=== PATIENT | female | born 1950 | race Caucasian/White ===

== ENCOUNTER → 2019-06-07 10:53 | Outpatient (CLI) | payer MEDICARE, OTHER, SELFPAY ==
[2019-06-07 11:33] LABS: BUN Creatinine Ratio 21.3 (6-22); Blood Urea Nitrogen 17 mg/dL (7-17); Estimated Glomerular Filt Rate > 60.0 mL/min (>60)
--- NOTE | 2019-06-07 11:59 | DI.CT.S_ITS ---
PROCEDURE: CT ABDOMEN PELVIS W CON INDICATIONS: Periumbilical pain/stat labs TECHNIQUE: After the administration of oral and intravenous contrast, 5 mm thick sections acquired from the diaphragms to the symphysis. 5 mm thick coronal and sagittal reformats were performed. For radiation dose reduction, the following was used: automated exposure control, adjustment of mA and/or kV according to patient size. COMPARISON: [facility], CT, CT ABDOMEN PELVIS WITH CONTRAST, 01/18/2019, 13:52. Outside Film, CT, CT ABDOMEN PELVIS WITH CONTRAST, 03/06/2019, 13:12. Outside Film, CT, CT CHEST WITH CONTRAST, 03/06/2019, 13:12. FINDINGS: Image quality: Excellent. ABDOMEN: Lung bases: Right middle lobe and lingular atelectasis. Lung bases are otherwise clear. Heart size is normal. Solid organs: Liver is normal in size and enhancement. Gallbladder is surgically absent. Biliary system is non-dilated. Pancreas enhances normally. Spleen is normal in size and enhancement. There is a 1 cm splenule near the splenic hilum. No adrenal nodules. Kidneys are normal in size and enhancement, without hydronephrosis. Peritoneum and bowel: Stomach, small bowel, and colon loops are normal in caliber and wall thickness. There are multiple colonic diverticula. Surgical clips are noted in the right lower quadrant. No free fluid or air. Nodes and vessels: No retroperitoneal or mesenteric adenopathy. Aorta and inferior vena cava are normal in caliber. Miscellaneous: There is a tiny fat-containing umbilical hernia. Mild stranding in the left anterior abdominal wall, unchanged. PELVIS: Genitourinary: Bladder wall thickness is normal. Uterus is absent. Ovaries are not identified. No free fluid in pelvis. Miscellaneous: No inguinal hernias or adenopathy. Bones: No suspicious bony lesions. No vertebral body compression fractures. IMPRESSION: 1. Diverticulosis without acute diverticulitis. 2. Tiny fat containing umbilical hernia. 3. No recurrent ventral hernia. Dictated by: Gemma Rucker M.D. on 06/07/2019 at 16:24 Approved by: Gemma Rucker M.D. on 06/07/2019 at 17:47
== END ==
PROVIDERS: Family Provider General Practice; PCP General Practice; Visit Provider General Practice
DX: R10.33 Periumbilical pain (principal); R10.13 Epigastric pain
CPT/HCPCS: 36415; 74177; 82565; 84520; Q9967

== ENCOUNTER → 2020-01-11 12:20 | Outpatient (CLI) | payer OTHER, SELFPAY ==
--- NOTE | 2020-01-11 | DI.MRI.S_ITS ---
PROCEDURE: MR CERVICAL SPINE WO CON INDICATIONS: THORACIC OUTLET SYNDROME TECHNIQUE: Noncontrast sagittal T1 spin echo and T2 fast spin echo, sagittal STIR, foraminal oblique sagittal T2 fast spin echo, and axial gradient echo or T2 fast spin echo through the cervical spine. COMPARISON: None. FINDINGS: Image quality: Excellent. Alignment and Curvature: Grade 1 anterolisthesis of C4 on C5 grade 1 retrolisthesis C5 on C6. Trace anterolisthesis of C7 on T1. Straightening of the normal lordotic curvature. Bone Marrow: Multilevel degenerative endplate sclerosis and spurring. Diffuse facet arthropathy. Spinal Cord: Visualized spinal cord has normal size and signal. No cerebellar tonsillar herniation. Paraspinous Soft Tissues: No paravertebral masses. Prevertebral soft tissues are normal in thickness. C2-C3: No canal stenosis. Moderate narrowing of the right neural foramen with nerve root compression. No left foraminal stenosis C3-C4: No definite canal stenosis. Severe right foraminal stenosis with nerve root compression. Mild to moderate left foraminal narrowing C4-C5: Mild canal narrowing. Moderate right foraminal stenosis with slight nerve root compression. Severe left foraminal stenosis with nerve root compression C5-C6: Moderate canal stenosis, which is predominantly left-sided. Moderate bilateral foraminal narrowing with nerve root compression. C6-C7: Moderate canal narrowing. Severe right foraminal stenosis with nerve root compression. Moderate left foraminal stenosis with nerve root compression C7-T1: No canal stenosis. Moderate bilateral foraminal narrowing with nerve root compression. IMPRESSION: Multilevel cervical spondylosis and facet arthropathy with moderate canal narrowing at C5-C6 C6-C7 Numerous bilateral foraminal stenoses as outlined above Multilevel spondylolisthesis as above. Dictated by: Desmond Kimble M.D. on 01/11/2020 at 14:39 Approved by: Desmond Kimble M.D. on 01/11/2020 at 14:47
--- NOTE | 2020-01-11 | DI.MRI.S_ITS ---
PROCEDURE: MR THORACIC SPINE WO CON INDICATIONS: THORACIC OUTLET SYNDROME TECHNIQUE: Noncontrast sagittal T1 spine echo and T2 fast spin echo, sagittal STIR, axial T1 and T2 fast spin echo through the thoracic spine. COMPARISON: [facility], , MR CERVICAL SPINE WO CON, 01/11/2020, 12:43. FINDINGS: Image quality: Excellent. Alignment and Curvature: There is normal bony alignment. Bone Marrow: Multilevel degenerative endplate sclerosis and spurring. Diffuse facet arthropathy. No fracture identified. Cervical spondylosis better detailed on the comparison C-spine MRI. Spinal Cord: Visualized spinal cord is normal in size and signal. Paraspinous Soft Tissues: No paravertebral masses. Miscellaneous: Multiple posterior disc bulges, most notably at T11-T12 there is mild canal narrowing. No thoracic spine foraminal stenosis IMPRESSION: No fracture Diffuse discogenic changes as above Partially visualized cervical spondylosis and facet arthropathy Dictated by: Desmond Kimble M.D. on 01/11/2020 at 14:51 Approved by: Desmond Kimble M.D. on 01/11/2020 at 14:55
== END ==
PROVIDERS: Family Provider General Practice; PCP General Practice
DX: M47.812 Spondylosis without myelopathy or radiculopathy, cervical region (principal); M48.02 Spinal stenosis, cervical region; M51.24 Other intervertebral disc displacement, thoracic region; M48.04 Spinal stenosis, thoracic region
CPT/HCPCS: 72141; 72146

== ENCOUNTER → 2020-01-14 12:16 | Outpatient (CLI) | payer OTHER, MEDICARE, SELFPAY ==
--- NOTE | 2020-01-14 | DI.MRI.S_ITS ---
PROCEDURE: MR CHEST WO CON INDICATIONS: ON GOING PAIN AFTER ACCIDENT TECHNIQUE: Axial and oblique coronal T1 spin echo and T2 spin echo with fat saturation, sagittal T1 spin echo and STIR acquired through the affected chest wall. COMPARISON: None. FINDINGS: Image quality: Excellent. Soft tissues: The sternal and clavicular heads of the pectoralis major muscle demonstrate normal bulk and internal signal. The pectoralis major tendon appears intact as it inserts onto the humeral shaft along the lateral lip of the intertubercular groove. The nearby quadrilateral space appears normal on axial images. No soft tissue fluid collections. Other visualized muscles appear intact, including the pectoralis minor and coracobrachialis. Bones: Visualized bony structures of the chest wall and upper arm appear intact, without focal marrow edema. IMPRESSION: Left chest wall muscles are grossly intact. No gross marrow signal abnormality is seen in the visualized left ribs and left clavicle. Please correlate with MRI of shoulder findings. Dictated by: Martín Sharma M.D. on 01/14/2020 at 14:42 Approved by: Martín Sharma M.D. on 01/14/2020 at 14:44
--- NOTE | 2020-01-14 | DI.MRI.S_ITS ---
PROCEDURE: MR SHOULDER LT WO CON INDICATIONS: THORACIC OUTLET SYNDROME TECHNIQUE: Noncontrast oblique coronal T2 fast spin echo with fat saturation, oblique sagittal T1 spin echo and T2 fast spin echo with fat saturation, axial T1 spin echo and T2 fast spin echo with fat saturation through the shoulder. COMPARISON: None. FINDINGS: Image quality: Excellent. Rotator cuff: Tendinosis and low to moderate grade articular and bursal surface partial-thickness tear involving distal supraspinatus at its insertion on the humeral head is seen extending to musculotendinous junction. Distal infraspinatus tendinosis is also seen. Distal subscapularis tendon is intact. Sagittal images demonstrate mild supraspinatus muscle atrophy. Bones and bursae: No bone marrow contusions or fractures. Moderate acromioclavicular joint osteoarthritic changes are seen with prominent downward osteophyte formation compressing on musculotendinous junction of supraspinatus. No pathologic subacromial-subdeltoid or subcoracoid bursal fluid is present. Capsule and soft tissues: In the absence of intra-articular contrast, the labrum and glenohumeral ligaments appear intact. The long head of the biceps tendinosis is seen. The rotator interval appears normal, without fibrosis. The coracohumeral ligament is normal in thickness. IMPRESSION: 1. Tendinosis and low to moderate grade articular and bursal surface partial-thickness tear involving distal supraspinatus extending to musculotendinous junction. Mild supraspinatus muscle atrophy. 2. Distal infraspinatus tendinosis. 3. Proximal intra-articular portion of long head biceps tendinosis. 4. Moderate acromioclavicular joint osteoarthritis. 5. No evidence of gross focal labral tear. Dictated by: Martín Sharma M.D. on 01/14/2020 at 13:51 Approved by: Martín Sharma M.D. on 01/14/2020 at 13:53
== END ==
PROVIDERS: Family Provider General Practice; PCP General Practice
DX: S46.012A Strain of muscle(s) and tendon(s) of the rotator cuff of left shoulder, initial encounter (principal); G54.0 Brachial plexus disorders; M19.012 Primary osteoarthritis, left shoulder; X58.XXXA Exposure to other specified factors, initial encounter
CPT/HCPCS: 71550; 73221

== ENCOUNTER 2021-04-17 10:14 | Emergency (ER) | payer MEDICARE, OTHER, SELFPAY ==
[2021-04-17 10:25] VITALS: BP 184/91; PULSE 71; O2SAT 99
--- NOTE | 2021-04-17 11:01 | ED.SKABFB ---
HPI - Skin/Abscess/Foreign Bdy General Chief complaint: Skin/Abscess/Foreign Body Stated complaint: had adm surgey yesterday and doesnt look good Time Seen by Provider: 04/17/21 10:37 Source: patient Mode of arrival: Ambulatory Limitations: no limitations History of Present Illness HPI narrative: Patient is a 70-year-old female who yesterday underwent an outpatient surgery where she had which she describes as a cyst removed from her abdominal wall just left to the umbilicus. This was done at an outside facility. She states that the surgery went well. She was discharged home. She has been following all of the postoperative instructions. She states that overnight she did develop redness around the area and warmth. No drainage from the wound. No fevers. Is having some discomfort but is not taking her pain medication that she states she does not want to take narcotics. Related Data Home Medications Medication Instructions Recorded Confirmed conjugated estrogens 0.625 mg 0.625 mg PO QDAY #0 12/30/16 tablet (Premarin) levothyroxine 75 mcg tablet 75 mcg PO Q DAY #0 12/30/16 (Synthroid) lisinopril 40 mg tablet 40 mg PO QDAY #0 12/30/16 omeprazole 20 mg capsule,delayed 20 mg PO QDAY@0600 #0 12/30/16 release oregano oil 1,500 mg capsule 1,500 mg PO QDAY #0 12/30/16 tolterodine 4 mg capsule,extended 4 mg PO QDAY #0 12/30/16 release 24 hr (Detrol LA) montelukast 10 mg tablet QDAY #0 04/14/17 (Singulair) Allergies Allergy/AdvReac Type Severity Reaction Status Date / Time codeine [CODEINE] Allergy Mild sedation Verified 04/17/21 11:16 meperidine [From DEMEROL] Allergy Mild N/V Verified 04/17/21 11:16 Review of Systems Constitutional Comments: No fevers Gastrointestinal Comments: Some pain around the surgical site Genitourinary Comments: No urinary symptoms Integumentary/Breasts Comments: Redness around surgical site Patient History Surgical History History of oral surgery (12/10/16) History of tonsillectomy Status post appendectomy Status post cholecystectomy Status post hernia repair Status post hysterectomy Status post rotator cuff repair Status post rotator cuff repair Family History (Updated 12/29/16 @ 00:00 by Conversion Provider) Father Alcoholic Mother Age: 100 COPD (chronic obstructive pulmonary disease) Blind Deaf Hypertension Social History Smoking Status: Never smoker Smoking Status: Never smoker alcohol intake frequency: 0-2 drinks per day Substance Use Type: does not use Exam Initial Vital Signs Initial Vital Signs: Vital Signs Pulse Rate 71 04/17/21 10:25 Blood Pressure 184/91 H 04/17/21 10:25 Pulse Oximetry 99 04/17/21 10:25 Const General: cooperative and comfortable HENMT Head: normal to inspection and normocephalic Resp Effort & Inspection: normal respiratory effort Cardio Rate: regular rate Skin Other: Patient does have a surgical wound on her anterior abdomen just left of the umbilicus consistent with her stated history. The wound looks well. No drainage. There is a 3 cm area of redness surrounding this area. Neuro General: patient alert, patient awake, patient oriented x3 and moves all extremities Extrem General: normal to inspection and capillary refill normal Course Orders Ordered: Discontinued Medications Acetaminophen (Acetaminophen 325 Mg Tablet) 650 mg PO NOW ONE Stop: 04/17/21 11:13 Last Admin: 04/17/21 11:16 Dose: 650 mg Documented by: JAGJIT Vital Signs Vital signs: Vital Signs - 8 hr 04/17/21 10:25 Pulse Rate 71 Blood Pressure 184/91 H Pulse Oximetry 99 MDM - Skin/Abscess/Foreign Bdy MDM Narrative Medical decision making narrative: I feel that given the fact that she just had surgery less than 24 hours ago that the redness surrounding the wound today is most likely a reactionary issue not an infectious issue. She is afebrile. Nontoxic appearing. Is only mildly tender to the touch. I did surround the area with a marking pen. We will hold on any antibiotics for now. She was informed that if the redness continues to extend from the area that she does need to be re-evaluated and potentially started on antibiotics. She did expressed understanding and agreement this plan. Discharge Plan Departure Patient Disposition: Home Clinical Impression: Postoperative complication Instructions: DI for Postoperative Pain Activity Restrictions/Additional Instructions: The redness around the wound today is less likely an infection given the fact you just had surgery 24 hours ago. This is most likely a irritation related to the surgery. However there is redness around the area and if it does start to move outside of the line that I yessi today you do need to be re-evaluated. Continue all of the postoperative instructions given to by the surgeon. Prescriptions: No Action conjugated estrogens [Premarin] 0.625 MG tablet 0.625 mg PO QDAY Qty: 0 RF: 0 omeprazole 20 MG capsule,delayed release(DR/EC) 20 mg PO QDAY@0600 Qty: 0 RF: 0 lisinopril 40 MG tablet 40 mg PO QDAY Qty: 0 RF: 0 tolterodine [Detrol LA] 4 MG capsule,extended release 24hr 4 mg PO QDAY Qty: 0 RF: 0 levothyroxine [Synthroid] 75 MCG tablet 75 mcg PO Q DAY Qty: 0 RF: 0 oregano oil 1,500 MG capsule 1,500 mg PO QDAY Qty: 0 RF: 0 montelukast [Singulair] 10 mg tablet QDAY Qty: 0 RF: 0 Referrals: Aayush Ch MD [Primary Care Provider] -
--- NOTE | 2021-04-17 11:13 | PC.NURSE ---
small amount of redness around surgical site. No drainage. slightly warm to touch. No increased pain/ fever.
[2021-04-17] MEDS: ACETAMINOPHEN 325 MG TABLET 650 MG PO (11:16)
== END 2021-04-17 11:19 | disposition home or self-care (01) ==
PROVIDERS: Emergency Provider Emergency Medicine; Family Provider General Practice; PCP General Practice
DX: G89.18 Other acute postprocedural pain (principal)
CPT/HCPCS: 99282; 99283

== ENCOUNTER → 2022-01-05 11:03 | Outpatient (CLI) | payer MEDICARE, OTHER, SELFPAY ==
--- NOTE | 2022-01-05 | DI.MRI.S_ITS ---
PROCEDURE: MR ANKLE RT WO CON INDICATIONS: Posterior tibial tendinitis, right leg TECHNIQUE: Noncontrast sagittal T1 spin echo and T2 fast spin echo with fat saturation, axial proton density fast spin echo and T2 fast spin echo with fat saturation, coronal T1 spin echo and T2 fast spin echo with fat saturation through the ankle/hindfoot. COMPARISON: None. FINDINGS: Image quality: Excellent. Bones and joints: No bone marrow contusions or fractures. No hindfoot coalitions. No osteochondral injuries of the talar dome. No pathologic joint effusions. Medial structures: The posterior tibialis is thickened with intrasubstance T2 hyperintense signal at the level of distal talus/talonavicular joint. The flexor digitorum longus, and flexor hallucis longus tendons are intact. The posterior tibial neurovascular bundle appears normal within the tarsal tunnel, without extrinsic mass effect. The deep layer (anterior and posterior tibiotalar ligaments) and superficial layer (tibionavicular, tibiospring, and tibiocalcaneal ligaments) of the deltoid ligament appear normal. The spring ligament components (superomedial calcaneonavicular, medioplantar oblique calcaneonavicular, and inferoplantar longitudinal ligaments) are intact. Lateral structures: The anterior talofibular, calcaneofibular, and posterior talofibular ligaments appear intact. More superiorly, the anterior and posterior tibiofibular ligaments appear intact, as is the intermalleolar ligament. The tibiofibular syndesmosis is normal in width at 2 mm or less. The peroneus longus and brevis tendons demonstrate normal location and morphology. Adjacent bony peroneal tubercle and retrotrochlear prominence are normal in size. The sinus tarsi demonstrates normal fatty signal, without edema, fibrosis, or cyst formation. Visualized sinus tarsi components (cervical ligament, interosseous talocalcaneal ligament, roots of the inferior extensor retinaculum) appear normal. The calcaneonavicular and calcaneocuboid components of the bifurcate ligament appear intact. The dorsal calcaneocuboid ligament appears intact. Anterior structures: The tibialis anterior, extensor hallucis longus, and extensor digitorum longus tendons appear intact. The dorsal talonavicular ligament appears intact. Posterior and plantar structures: Achilles tendon is intact. Medial and lateral bands of the plantar fascia are mildly thickened with small amount of surrounding soft tissue edema.. No abductor digiti quinti muscle atrophy to suggest Blair neuropathy. IMPRESSION: 1. Tendinosis and very low-grade intrasubstance partial-thickness tear involving posterior tibialis tendon at the level of distal talus/talonavicular joint. No other tendon or ligament pathology is seen. 2. No marrow edema. No fracture or dislocation. No osteochondral injury of talar dome. 3. Mildly thickened plantar fascia at its calcaneal insertion suggestive of low-grade plantar fasciitis. Achilles tendon is intact. Dictated by: Martín Sharma M.D. on 01/05/2022 at 13:22 Approved by: Martín Sharma M.D. on 01/05/2022 at 13:34
== END ==
PROVIDERS: Family Provider General Practice; PCP Nurse Practitioner Family; Referring Provider Orthopaedic Surgery Foot and Ankle Surgery; Visit Provider Orthopaedic Surgery Foot and Ankle Surgery
DX: M76.821 Posterior tibial tendinitis, right leg (principal)
CPT/HCPCS: 73721

== ENCOUNTER → 2022-04-23 09:35 | Outpatient (CLI) | payer MEDICARE, OTHER, SELFPAY ==
--- NOTE | 2022-04-23 | DI.NM.S_ITS ---
PROCEDURE: NM SHUKRI PERF SPECT REST & STR Rest and exercise myocardial perfusion SPECT with gated imaging and ejection fraction RADIOPHARMACEUTICAL: 12.4 mCi Tc-99m sestamibi IV at rest and 25.1 mCi Tc-99m sestamibi IV at peak exercise. A [id number] was performed. INDICATIONS: Shortness of Breath TECHNIQUE: Radiopharmaceutical was injected at peak stress test, and also at rest. SPECT images were obtained. SPECT myocardial perfusion images were displayed in short axis, horizontal long axis, and vertical long axis views. Gated images were reviewed using [employer] software. COMPARISON: None. CARDIAC STRESS: A standard Satinder treadmill exercise tolerance test was performed by the patient under the supervision of an attending staff. The patient exercised for 4 minutes and 25 seconds; maximum heart rate 145 bpm (96% peak predicted), maximum blood pressure 182/90, 7.0 METS, functional aerobic impairment (PAULA) is +22%. Hemodynamic data: There is normal blood pressure and heart rate response to exercise stress. Symptoms: Patient denied chest pain during exercise. EKG: No diagnostic EKG changes of ischemia; no ectopy. FINDINGS: Raw data: There is good myocardial labeling by radiotracer. No significant motion artifacts. Ymln-mm-ngmrn ratio is 0.37 (normal is less than 0.38 for sestamibi tracer, and less than 0.50 for thallium tracer). Left ventricle function: Gated images demonstrate normal left ventricle wall thickening. No segmental wall motion abnormality. No transient ischemic dilation; TID is 1.04 (normal less than 1.3). The left ventricle resting end-diastolic volume is 71 mL. Left ventricle stress ejection fraction is >75%; normal values are above 45%. Myocardial perfusion: There is normal distribution of activity in the left and right ventricular myocardium. No fixed or reversible perfusion defects. IMPRESSION: No evidence of exercise-induced ischemia on ECG or SPECT imaging. Normal blood pressure response to exercise. Hyperdynamic left ventricular function. Reduced exercise capacity. Dictated by: Ene Swan D.O. on 04/23/2022 at 16:21 Approved by: Ene Swan D.O. on 04/23/2022 at 16:25
[2022-04-23 11:43] LABS: COVID19 -Nasal RAPID Negative (Negative)
--- NOTE | 2022-04-23 12:27 | DI.ECHO.S_ITS ---
Interpretation Summary The ejection fraction is estimated to be 60-65%. Diastolic parameters suggest probable normal left ventricular diastolic function and normal filling pressures. The right ventricle is normal in size and function. There is mild mitral regurgitation. There is mild tricuspid regurgitation. The right ventricular systolic pressure is estimated to be at least 34 mmHg based on an estimated right atrial pressure of 3 mm Hg. Procedure: A two-dimensional transthoracic echocardiogram with color flow and Doppler was performed. The study quality was technically adequate. There is no prior echocardiogram noted for this patient. The patient was in normal sinus rhythm during the exam. Left Ventricle: The left ventricle is normal in size and wall thickness. Left ventricular systolic function is normal. The ejection fraction is estimated to be 60-65%. There are no focal wall motion abnormalities. Diastolic parameters suggest probable normal left ventricular diastolic function and normal filling pressures. Right Ventricle: The right ventricle is normal in size and function. Atria: Both atria are normal in size. The interatrial septum grossly appears intact with no obvious evidence for an atrial septal defect. Mitral Valve: The mitral valve is normal in structure and function. There is mild mitral regurgitation. Aortic Valve: The aortic valve is trileaflet. There is no aortic valve stenosis. No aortic regurgitation is present. Tricuspid Valve: The tricuspid valve is normal in structure and function. There is mild tricuspid regurgitation. The right ventricular systolic pressure is estimated to be at least 34 mmHg based on an estimated right atrial pressure of 3 mm Hg. Pulmonic Valve: The pulmonic valve is not well seen, but is grossly normal. There is no pulmonic valvular regurgitation. Great Vessels: The aortic root is normal size. The dimensions of the ascending aorta are normal. The IVC is of normal diameter and collapses greater than 50% with a sniff. This suggests a low right atrial pressure of 3 mm Hg. Pericardium/ Pleura There is no pericardial effusion. There is no pleural effusion. MMode/2D Measurements & Calculations LVIDd: 4.3 cm LVOT diam: 2.0 cm LVIDs: 2.8 cm Ao root diam: 2.7 cm FS: 36.0 % asc Aorta Diam: 2.6 cm IVSd: 0.91 cm LVPWd: 0.78 cm LV huston. diameter/BSA (cm/m^2): 2.2 LV sys. diameter/BSA (cm/m^2): 1.4 LA A2 area: 17.0 cm2 RA long axis: 4.3 cm LA A4 area: 19.1 cm2 RA area: 11.2 cm2 LA length (vol): 5.0 cm RA vol: 25.1 ml LA vol: 55.3 ml RA : 12.9 ml/m2 LA vol index: 28.4 ml/m2 IVC diam: 2.0 cm TAPSE: 2.3 cm Doppler Measurements & Calculations Ao V2 max: 138.3 cm/sec LVOT Max Dean: 115.1 cm/sec Ao V2 mean: 90.4 cm/sec LV V1 max P.3 mmHg Ao max P.6 mmHg LV V1 VTI: 24.1 cm Ao mean P.7 mmHg AUGUSTINE(I,D): 2.7 cm2 Ao V2 VTI: 27.0 cm AUGUSTINE(V,D): 2.5 cm2 sev ratio: 0.89 AUGUSTINE indexed to BSA (cm^2/m^2): 1.4 MV E max dean: 91.1 cm/sec TR max dean: 279.4 cm/sec MV A max dean: 81.2 cm/sec TR max P.2 mmHg MV E/A: 1.1 Med Peak E' Dean: 9.2 cm/sec E/E' med: 9.9 Lat Peak E' Dean: 10.3 cm/sec E/E' lat: 8.8 E/e' average: 9.3 MV dec time: 0.18 sec SV(LVOT): 72.1 ml Reading Physician:02:51 PM
== END ==
PROVIDERS: Family Provider General Practice; PCP Nurse Practitioner Family; Referring Provider Internal Medicine Cardiovascular Disease; Visit Provider Internal Medicine Cardiovascular Disease
DX: R06.02 Shortness of breath (principal); Z20.822 Contact with and (suspected) exposure to COVID-19
CPT/HCPCS: 78452; 87635; 93017; 93306; A9502

== ENCOUNTER → 2022-11-04 09:18 | Outpatient (CLI) | payer MEDICARE, OTHER, SELFPAY ==
--- NOTE | 2022-11-12 16:42 | PM.PFT.1 ---
Pulmonary Function Test Referral & Results Date Patient Seen: 11/04/22 Results: The spirometry demonstrates an FVC of 2.28 L which is 73% of predicted. The FEV1 was measured at 1.70 L which is 72% of predicted. The FEV1/FVC ratio was 75 which is 98% of predicted. Following the administration of bronchodilator there was an 11% improvement in FEV1 and a 50% improvement in FEF 25-75%. Lung volumes show an SVC of 2.46 L which is 83% of predicted. The diffusing capacity was measured at 19.20 which is 75% of predicted. No hemoglobin value was provided, so no correction for potential anemia could be made, if appropriate. The maximum voluntary ventilation was reduced Interpretation: This study demonstrates mild obstructive lung disease based on reduction FEV1 although FEV1/FVC ratio is preserved there is some evidence of benefit following bronchodilator particularly small airway flow as demonstrated by the improvement in the FEF 25-75% as above There is a minimal reduction in lung volumes suggesting the presence of minimal restrictive lung disease There is also a very mild reduction diffusing capacity suggesting an element of disease at the capillary alveolar level
== END ==
PROVIDERS: Family Provider General Practice; PCP Nurse Practitioner Family; Referring Provider Nurse Practitioner Family; Visit Provider Nurse Practitioner Family
DX: R06.02 Shortness of breath (principal); Z87.891 Personal history of nicotine dependence; J98.8 Other specified respiratory disorders
CPT/HCPCS: 94060; 94726; 94729